=== PATIENT | female | born 1945 | race Two or more races ===

== ENCOUNTER 2017-04-13 21:19 | Emergency (ER) | payer OTHER ==
[~2017-04-13] VITALS: Ht 157.5 cm; Wt 77.1 kg
[2017-04-13] MEDS ORDERED: AVAPRO150 MG (21:33)
[2017-04-13] MEDS ORDERED: NORVASC10 MG (21:33)
[2017-04-14] MEDS ORDERED: NORFLEX100MG PO (02:21)
[2017-04-14] MEDS ORDERED: KETO10TA2 PO (02:21)
== END 2017-04-14 02:32 ==
LOC: ER 21:19
DX: G89.11 Acute pain due to trauma (principal); S30.0XXS Contusion of lower back and pelvis, sequela; S70.02XS Contusion of left hip, sequela; W22.8XXS Striking against or struck by other objects, sequela

== ENCOUNTER → 2017-09-23 | Emergency (ER) | payer OTHER ==
[~2017-09-23] VITALS: Ht 157.5 cm; Wt 80.7 kg
[~2017-09-23] MED LIST: ASPIR 8181 MG; AVAPRO150 MG; KETO10TA2 PO; NORFLEX100MG PO; NORVASC10 MG
== END | disposition home or self-care (01) ==
LOC: ER 06:40
DX: M79.605 Pain in left leg (principal)